=== PATIENT | female | born 1980 | race Hispanic/Latino ===

== ENCOUNTER 2020-03-03 12:24 | Emergency (ER) | payer OTHER ==
[2020-03-03] MEDS ORDERED: ACETAMINOPHEN EXTRA STRENGTH 500 MG TABLET ONE (12:42)
[2020-03-03 13:00] LABS: BASOPHILS % (AUTO) 0.2 % (0.0-5.0); EOSINOPHILS % (AUTO) 0.4 % (0.0-8.0); HEMATOCRIT 39.2 % (36-48); LYMPHOCYTES % (AUTO) 10.3 % (21.0-51.0); MEAN CORPUSCULAR HEMOGLOBIN 29.3 pg (27.0-33.0); MEAN CORPUSCULAR HGB CONC 33.2 g/dL (32.0-36.0); MEAN CORPUSCULAR VOLUME 88.5 fL (79-99); MONOCYTES % (AUTO) 6.7 % (3.0-13.0); NEUTROPHILS % (AUTO) 82.1 % (40.0-77.0); PLATELET COUNT (AUTO) 317 K/uL (130-400); RED BLOOD CELL COUNT(AUTO) 4.43 MIL/uL (4.00-5.50); RED CELL DISTRIBUTION WIDTH 11.7 % (11.0-15.5); WHITE BLOOD COUNT (AUTO) 12.8 K/uL (4.8-10.8)
[2020-03-03 13:18] LABS: CREATININE 0.7 mg/dL (0.5-1.5)
[2020-03-03 13:19] LABS: APPEARANCE,URINE Clear (CLEAR); BILIRUBIN,URINE Negative (NEGATIVE); COLOR,URINE Dark Yellow (YELLOW); GLUCOSE, URINE (UA) Negative (NEGATIVE); KETONES,URINE Trace mg/dL (NEGATIVE); LEUKOCYTE ESTERASE ,URINE Small (NEGATIVE); NITRATE,URINE Negative (NEGATIVE); OCCULT BLOOD,URINE Trace (NEGATIVE); PH,URINE 6.5 (5.0-8.0); PROTEIN,URINE Trace mg/dL (NEGATIVE)
[2020-03-03 13:20] LABS: HCG,QUAL RESULT NEGATIVE (NEGATIVE)
[2020-03-03 13:22] LABS: ALBUMIN 4.4 g/dL (3.5-5.0); BILIRUBIN,TOTAL 0.5 mg/dL (0.2-1.0); TOTAL PROTEIN, SERUM 8.4 g/dL (6.0-8.3)
[2020-03-03 14:01] LABS: BACTERIA,URINE Few /HPF (None Seen); RBC,URINE 0-1 /HPF (0-1)
[2020-03-03] MEDS ORDERED: KETOROLAC TROMETHAMINE 15MG/ML ONE ×2 (14:19→16:31)
[2020-03-03] MEDS ORDERED: IOHEXOL-350 75 ML VIAL IV ONE (15:17)
[2020-03-03] MEDS ORDERED: AMOXICILLIN/POTASSIUM CLAV 875-125 TABLET PO ONE (16:31)
== END 2020-03-03 17:03 | disposition home or self-care (01) ==
LOC: EDH 12:24
DX: R10.32 Left lower quadrant pain (principal); Z90.49 Acquired absence of other specified parts of digestive tract; Z90.710 Acquired absence of both cervix and uterus; Z98.890 Other specified postprocedural states; Z88.6 Allergy status to analgesic agent
CPT/HCPCS: 36415; 74177; 80053; 81001; 81025; 85025; 96361; 96374; 96376; 99285; J1885 ×2; Q9967

== ENCOUNTER 2020-03-06 16:48 | Inpatient (IN) | payer OTHER ==
[~2020-03-06] VITALS: Ht 157.5 cm; Wt 69.7 kg
[2020-03-06] MEDS ORDERED: ONDANSETRON HCL 4 MG/2 ML VIAL ONE (17:44)
[2020-03-06] MEDS ORDERED: METRONIDAZOLE 500MG/100ML BAG 100 ML ONE (17:45)
[2020-03-06] MEDS ORDERED: KETOROLAC TROMETHAMINE 30MG/ML ONE (17:45)
[2020-03-06 19:18] LABS: BASOPHILS % (AUTO) 0.2 % (0.0-5.0); EOSINOPHILS % (AUTO) 1.1 % (0.0-8.0); HEMATOCRIT 32.2 % (36-48); LYMPHOCYTES % (AUTO) 28.2 % (21.0-51.0); MEAN CORPUSCULAR HEMOGLOBIN 29.4 pg (27.0-33.0); MEAN CORPUSCULAR HGB CONC 34.2 g/dL (32.0-36.0); MEAN CORPUSCULAR VOLUME 86.1 fL (79-99); MONOCYTES % (AUTO) 8.2 % (3.0-13.0); NEUTROPHILS % (AUTO) 61.5 % (40.0-77.0); PLATELET COUNT (AUTO) 278 K/uL (130-400); RED BLOOD CELL COUNT(AUTO) 3.74 MIL/uL (4.00-5.50); RED CELL DISTRIBUTION WIDTH 11.4 % (11.0-15.5); WHITE BLOOD COUNT (AUTO) 4.8 K/uL (4.8-10.8)
[2020-03-06 19:27] LABS: CREATININE 0.7 mg/dL (0.5-1.5); POTASSIUM 3.6 mmol/L (3.5-5.1)
[2020-03-06 19:31] LABS: CREATINE KINASE, TOTAL 36 U/L (21-232); LIPASE 95 U/L (114-286)
[2020-03-06 19:32] LABS: ALBUMIN 3.5 g/dL (3.5-5.0); BILIRUBIN,TOTAL 0.2 mg/dL (0.2-1.0); TOTAL PROTEIN, SERUM 7.5 g/dL (6.0-8.3)
[2020-03-06 19:46] LABS: INR 0.94 (0.85-1.15); PROTHROMBIN TIME 10.2 SEC (9.6-11.6)
[2020-03-06] MEDS ORDERED: NITROGLYCERIN 0.4 MG SL TAB SL PRN (20:00)
[2020-03-06] MEDS: SODIUM CHLORIDE 0.9% 1000ML 1,000 ML IV SCH (20:00)
[2020-03-06] MEDS ORDERED: IOHEXOL-350 75 ML VIAL IV ONE (20:18)
[2020-03-06] MEDS ORDERED: FAMOTIDINE/PF 20 MG/2 ML VIAL IV ONE (20:40)
[2020-03-06] MEDS ORDERED: LEVOFLOXACIN 500 MG/D5W 100 ML 100 ML ONE (20:41)
[2020-03-06] MEDS: FAMOTIDINE/PF 20 MG/2 ML VIAL IV SCH (21:00)
[2020-03-06] MEDS ORDERED: FENTANYL CITRATE PF 50 MCG/1 ML 2ML VIAL ONE (22:39)
[2020-03-06] MEDS ORDERED: CEFEPIME HCL 2 GM VIAL ONE (23:59)
[2020-03-07] VITALS (12 sets, daily range): BP systolic 115–154; BP diastolic 64–87
--- NOTE | 2020-03-07 00:55 | NUR ---
ADMIT PT ADMITTED TO ROOM 425, AAOX3. CLAIMS OF ABDOMINAL PAINS STILL.IVF FROM ER OF [facility] REGULATED AT 100CC/HR. ADMISSION CARE DONE. ADMISSION DATA BASE COMPLETED. INSTRUCTED TO BE NPO, PT VERBALIZES UNDERSTANDING. ORIENTED TO ROOM AND UNIT. IN FOR MORE CARE AND MANAGEMENT. Addendum: 03/07/20 at 0204 by LIMA CHAIREZ RN RN Amended: Links added.
[2020-03-07] MEDS ORDERED: FENTANYL CITRATE PF 50 MCG/1 ML 2ML VIAL IVP ONE (01:30)
[2020-03-07] MEDS: METRONIDAZOLE 500MG/100ML BAG 100 ML IVPB SCH ×4 (01:35→20:59)
--- NOTE | 2020-03-07 02:27 | NUR ---
NOT GIVEN FENTANYL DOSE NOT GIVEN AT THIS TIME PT CLAIMS NO NEED FOR PAIN MEDS YET. WILL RE-ASSESS T.
[2020-03-07] MEDS ORDERED: FENTANYL CITRATE PF 50 MCG/1 ML 2ML VIAL ONE (02:51)
--- NOTE | 2020-03-07 02:54 | NUR ---
PAIN PT AWAKENS AND CLAIMS OF ABDOMINAL PAINS. FENTANYL DOSE ADMINISTERED. KEPT RESTED AND COMFORTABLE IN BED. WILL RE-ASSESS PT.
[2020-03-07 05:20] LABS: HEMATOCRIT 32.8 % (36-48); MEAN CORPUSCULAR HEMOGLOBIN 29.4 pg (27.0-33.0); MEAN CORPUSCULAR HGB CONC 33.8 g/dL (32.0-36.0); MEAN CORPUSCULAR VOLUME 86.8 fL (79-99); PLATELET COUNT (AUTO) 282 K/uL (130-400); RED BLOOD CELL COUNT(AUTO) 3.78 MIL/uL (4.00-5.50); RED CELL DISTRIBUTION WIDTH 11.3 % (11.0-15.5); WHITE BLOOD COUNT (AUTO) 5.5 K/uL (4.8-10.8)
[2020-03-07 05:35] LABS: BAND NEUTROPHILS % (MANUAL) 2 % (0-2); EOSINOPHILS % (MANUAL) 3 % (1-6); LYMPHOCYTES % (MANUAL) 31 % (22-44); MAN.DIFF COMMENT-IMPRESSION MANUAL DIFFERENTIAL; MONOCYTES % (MANUAL) 9 % (2-9); PLATELET MORPHOLOGY COMMENT ADEQUATE; REACTIVE LYMPHOCYTES 3 % (0-0); SEGMENTED NEUTROPHILS % 52 % (40-70)
[2020-03-07] MEDS: SODIUM CHLORIDE 0.9% 1000ML 1,000 ML IV SCH ×3 (05:36→16:45)
--- NOTE | 2020-03-07 05:39 | NUR ---
MEDS PT RESTING WELL, FAIRLY ASLEEP. NO DISTRESS NOTED. DUE FLAGYL MARIBEL BARBER. KEPT UNDISTURBED FOR NOW. FOR MORE CARE.
[2020-03-07] MEDS ORDERED: AMOX-426 PO (05:45)
[2020-03-07] MEDS ORDERED: OMEP40CA13 PO (05:45)
[2020-03-07] MEDS ORDERED: ERGO500014 PO (05:45)
[2020-03-07 05:51] LABS: ALBUMIN 3.5 g/dL (3.5-5.0); BILIRUBIN,TOTAL 0.3 mg/dL (0.2-1.0); CREATININE 0.6 mg/dL (0.5-1.5); MAGNESIUM 1.9 mg/dL (1.80-2.40); POTASSIUM 3.8 mmol/L (3.5-5.1); TOTAL PROTEIN, SERUM 7.5 g/dL (6.0-8.3)
[2020-03-07] MEDS: ENOXAPARIN SODIUM 30 MG/0.3 ML SQ SCH (09:32)
[2020-03-07] MEDS: FAMOTIDINE/PF 20 MG/2 ML VIAL IV SCH ×2 (09:32→20:59)
[2020-03-07] MEDS: CEFEPIME HCL 2 GM VIAL IVP SCH ×2 (09:32)
[2020-03-07] MEDS: ONDANSETRON HCL 4 MG/2 ML VIAL IV PRN (14:47)
--- NOTE | 2020-03-07 15:06 | NUR ---
REPORT TO KIRAN TAM.
[2020-03-07] MEDS: ZOSYN 3.375GM+NS 50ML 50 ML IV SCH (17:10)
[2020-03-07] MEDS ORDERED: PEG 3350/NA SULF,BICARB,CL/KCL 4000 ML SOLN ONE (18:28)
[2020-03-07] MEDS ORDERED: PEG 3350/NA SULF,BICARB,CL/KCL 4000 ML SOLN PO ONE (19:30)
[2020-03-07] MEDS ORDERED: ACETAMINOPHEN 325 MG TAB PO PRN (22:45)
[2020-03-08] MEDS: ZOSYN 3.375GM+NS 50ML 50 ML IV SCH ×3 (01:05→22:25)
[2020-03-08] MEDS: SODIUM CHLORIDE 0.9% 1000ML 1,000 ML IV SCH ×2 (01:05→13:54)
[2020-03-08 03:38] VITALS: BP 123/83
[2020-03-08] MEDS: METRONIDAZOLE 500MG/100ML BAG 100 ML IVPB SCH ×3 (06:01→22:25)
[2020-03-08 06:39] LABS: APPEARANCE,URINE Clear (CLEAR); BILIRUBIN,URINE Negative (NEGATIVE); COLOR,URINE Yellow (YELLOW); GLUCOSE, URINE (UA) Negative (NEGATIVE); KETONES,URINE 15 mg/dL (NEGATIVE); LEUKOCYTE ESTERASE ,URINE Small (NEGATIVE); NITRATE,URINE Negative (NEGATIVE); OCCULT BLOOD,URINE Negative (NEGATIVE); PH,URINE 6.5 (5.0-8.0); PROTEIN,URINE Negative (NEGATIVE); UROBILINOGEN,URINE 0.2 mg/dL (0.2-1.0)
[2020-03-08 07:06] LABS: BASOPHILS % (AUTO) 0.2 % (0.0-5.0); EOSINOPHILS % (AUTO) 2.4 % (0.0-8.0); HEMATOCRIT 33.4 % (36-48); LYMPHOCYTES % (AUTO) 38.3 % (21.0-51.0); MEAN CORPUSCULAR HEMOGLOBIN 29.3 pg (27.0-33.0); MEAN CORPUSCULAR HGB CONC 34.4 g/dL (32.0-36.0); MEAN CORPUSCULAR VOLUME 85.2 fL (79-99); MONOCYTES % (AUTO) 10.7 % (3.0-13.0); NEUTROPHILS % (AUTO) 48.2 % (40.0-77.0); PLATELET COUNT (AUTO) 274 K/uL (130-400); RED BLOOD CELL COUNT(AUTO) 3.92 MIL/uL (4.00-5.50); RED CELL DISTRIBUTION WIDTH 11.4 % (11.0-15.5); WHITE BLOOD COUNT (AUTO) 4.2 K/uL (4.8-10.8)
[2020-03-08 07:35] LABS: ALANINE AMINOTRANSFERASE 43 U/L (12-78); ALBUMIN 3.5 g/dL (3.5-5.0); ASPARTATE AMINOTRANSFERASE 25 U/L (10-37); BILIRUBIN,TOTAL 0.4 mg/dL (0.2-1.0); CARBON DIOXIDE 27 mmol/L (21-32); CHLORIDE 106 mmol/L (101-111); CREATININE 0.6 mg/dL (0.5-1.5); GLOMERULAR FILTR. RATE CALC 119 mL/min (>60); GLUCOSE,RANDOM 94 mg/dL (70-105); POTASSIUM 3.5 mmol/L (3.5-5.1); SODIUM SERUM 141 mmol/L (136-145); TOTAL PROTEIN, SERUM 7.2 g/dL (6.0-8.3); UREA NITROGEN, BLOOD 7 mg/dL (7-18)
[2020-03-08 07:48] LABS: BACTERIA,URINE Rare /HPF (None Seen); RBC,URINE 0-1 /HPF (0-1)
[2020-03-08 08:00] VITALS: BP 111/68
[2020-03-08] MEDS: FAMOTIDINE/PF 20 MG/2 ML VIAL IV SCH ×2 (10:32→22:26)
[2020-03-08] MEDS: ENOXAPARIN SODIUM 30 MG/0.3 ML SQ SCH (10:38)
[2020-03-08 12:00] VITALS: BP 121/88
[2020-03-08] MEDS: ONDANSETRON HCL 4 MG/2 ML VIAL IV PRN (14:34)
[2020-03-08 16:00] VITALS: BP 120/78
[2020-03-08 19:50] VITALS: BP 133/94
[2020-03-08 23:22] VITALS: BP 146/90
[2020-03-09 04:06] VITALS: BP 117/61
[2020-03-09] MEDS: METRONIDAZOLE 500MG/100ML BAG 100 ML IVPB SCH ×2 (04:15→13:03)
[2020-03-09] MEDS: SODIUM CHLORIDE 0.9% 1000ML 1,000 ML IV SCH (04:17)
[2020-03-09 05:14] LABS: BASOPHILS % (AUTO) 0.2 % (0.0-5.0); EOSINOPHILS % (AUTO) 1.9 % (0.0-8.0); HEMATOCRIT 32.6 % (36-48); LYMPHOCYTES % (AUTO) 33.3 % (21.0-51.0); MEAN CORPUSCULAR HEMOGLOBIN 29.2 pg (27.0-33.0); MEAN CORPUSCULAR HGB CONC 34.4 g/dL (32.0-36.0); MEAN CORPUSCULAR VOLUME 84.9 fL (79-99); MONOCYTES % (AUTO) 8.4 % (3.0-13.0); PLATELET COUNT (AUTO) 275 K/uL (130-400); RED BLOOD CELL COUNT(AUTO) 3.84 MIL/uL (4.00-5.50); RED CELL DISTRIBUTION WIDTH 11.3 % (11.0-15.5); WHITE BLOOD COUNT (AUTO) 5.7 K/uL (4.8-10.8)
[2020-03-09 05:26] LABS: CREATININE 0.6 mg/dL (0.5-1.5); POTASSIUM 3.4 mmol/L (3.5-5.1)
[2020-03-09] MEDS: ZOSYN 3.375GM+NS 50ML 50 ML IV SCH ×2 (06:36→14:50)
[2020-03-09 08:00] VITALS: BP 119/81
[2020-03-09] MEDS: ENOXAPARIN SODIUM 30 MG/0.3 ML SQ SCH (09:15)
[2020-03-09] MEDS: FAMOTIDINE/PF 20 MG/2 ML VIAL IV SCH (09:15)
[2020-03-09 12:00] VITALS: BP 119/60
--- NOTE | 2020-03-09 14:48 | NUR ---
MET W/ PATIENT AT BEDSIDE TO DC PLANNING- STATES LIVES WITH FAMILY, IS INDEPENDENT, ACTIVE, NO DME, EMPLOYED, MOM TO PROVIDE TRANSPORT DCP HOME Addendum: 03/09/20 at 1451 by DAKOTA COYNE RN CM Amended: Links added.
[2020-03-09] MEDS ORDERED: METR500T PO (15:40)
[2020-03-09] MEDS ORDERED: LEVO750T46 PO (15:40)
[2020-03-09 16:00] VITALS: BP 130/86
--- NOTE | 2020-03-09 18:27 | NUR ---
PATIENT DISCHARGE PATIENT DISCHARGE, IV DISCONTINUED, CATHLON INTACT, BLEEDING CONTROLLED, PATIENT TOLERATED WITHOUT INCIDENT. DISCUSSED WITH PATIENT NEW MEDICATIONS AND FOLLOW UP APPOINTMENT NEXT FRIDAY WITH DR. ANGEL. PATIENT STATED SHE UNDERSTOOD AND HAD NO QUESTIONS.
[2020-03-09] MEDS ORDERED: POLYETHYLENE GLYCOL 3350 17 GM POWD.PACK PO SCH (21:00)
== END 2020-03-09 18:30 | disposition home or self-care (01) | DRG 392 ==
LOC: EDH 16:48 → EDHIP 19:24 → 4DH 03-07 00:45 → 3DH 03-07 15:34
PROVIDERS: ADMIT Internal Medicine; ATTEND Internal Medicine
DX: K57.32 Diverticulitis of large intestine without perforation or abscess without bleeding (principal); K76.0 Fatty (change of) liver, not elsewhere classified; K52.9 Noninfective gastroenteritis and colitis, unspecified; K21.9 Gastro-esophageal reflux disease without esophagitis; K59.09 Other constipation; K44.9 Diaphragmatic hernia without obstruction or gangrene; Z82.49 Family history of ischemic heart disease and other diseases of the circulatory system; Z90.49 Acquired absence of other specified parts of digestive tract; Z90.710 Acquired absence of both cervix and uterus
CPT/HCPCS: 36415; 74177; 80048; 80053; 81001; 82550; 83655; 83690; 83735; 84145; 84484; 85025; 85610; 85730; 87040; 93005; G0378; J0692; J1650; J1885; J1956; J2405; J2543; J3010; J3490; J7030; Q9967